=== PATIENT | male | born 1995 | race African-American/Black ===

== ENCOUNTER 2025-04-05 07:16 | Emergency (ER) | payer OTHER, SELFPAY ==
[2025-04-05 07:19] VITALS: BP 133/86
[2025-04-05 07:40] VITALS: BMI 36.6
--- NOTE | 2025-04-05 07:43 | ED.GENMED ---
History of Present Illness
General
Chief Complaint: Cold/Flu/URI Symptoms
Source: patient
Exam Limitations: none
Time Seen by Provider: 04/05/25 07:22
Nursing documentation reviewed up to this point in time: agreed with
History of Present Illness
History of Present Illness:
see mdm
Phy Exam
Physical Exam
Physical Exam:
GENERAL: Alert , in no apparent distress
EYE: pupils equal and reactive
NECK: Supple
ENT: b/l TM s clear, pharynx erythematous but no tonsillar hypertrophy or exudates, moderate turbinate edema and erythema, no sinus tenderness
CARDIAC: Regular rate and rhythm, no edema
LUNGS: Clear breath sounds bilaterally, no acute respiratory distress, no wheezes/rales/rhonchi, occ cough
ABDOMEN: Soft, without focal tenderness, no r/g, no cvat, normal bowel sounds
NEUROLOGICAL: Alert and oriented, no focal neuro deficits
SKIN: Warm and dry, skin intact.
MUSCULOSKELETAL: No edema, well perfused.
PSYCH: Normal and appropriate interaction.
Course
Orders/Labs/Results
Orders:
Orders
04/05/25 07:44
COVID-19 Antigen Urgent
Source: Nasal Swab
Influenza A+B Rapid Molecular Urgent
RUCHI Source: Nasal Swab
Specimen Description:
Rapid Strep Group A Urgent
RUCHI Source: Throat/Pharynx
Specimen Description:
Date Specimen was Collected: 04/05/25
Time Specimen was Collected: 07:41
Abnormal Lab Results
04/05/25
07:44
SARS-CoV-2 Antigen Positive A
(Negative)
Vital Signs
Initial and Last Documented VS:
Initial Vital Signs
Temp Pulse Resp BP Pulse Ox
37.6 C 78 16 133/86 96
04/05/25 07:19 04/05/25 07:19 04/05/25 07:19 04/05/25 07:19 04/05/25 07:19
Last Documented Vital Signs
Temp Pulse Resp BP Pulse Ox
37.6 C 70 16 133/86 98
04/05/25 07:19 04/05/25 08:16 04/05/25 08:16 04/05/25 07:19 04/05/25 08:16
MDM/Problems Addressed
Differential Diagnosis Includes:
See MDM
MDM/Problems Addressed:
Note:
CHIEF COMPLAINT(S)
Sore throat, nasal congestion, and headache.
HISTORY OF PRESENT ILLNESS
The patient is a 29-year-old male no sig PMH who presented with symptoms initially starting 3 days ago, characterized by nasal congestion, sore throat, and a sensation of pressure in the head, which is less painful. The primary concern now is his
throat. The patient experienced a fever the day before yesterday, reaching 99.7�F, and treated it with otyv-hjt-uttniyy medications, including Tylenol. He notes a dry cough, sometimes producing yellow mucus. There is no report of diarrhea, nausea,
vomiting, chest pain, or shortness of breath. The patient denies recent tick bites or any noticeable rash. He has not used any home flu or COVID testing kits. pt's friend had similar sxs and he was around him a few days before pt's symptoms started.
PAST MEDICAL AND SURIGICAL HISTORY
Not on any current medications and has no known past medical conditions or surgical history.
SOCIAL DETERMINANTS AFFECTING HEALTH
The patient works at an unspecified job and occasionally smokes hookah socially, which suggests a potential need to discuss further smoking habits and their impact on respiratory symptoms or overall health.
ALLERGIES
The patient reported allergies to ibuprofen but did not report any reactions.
SOCIAL HISTORY
The patient does not smoke cigarettes or use drugs or alcohol.
REVIEW OF SYSTEMS
- Respiratory: Cough; sometimes productive with yellow mucus.
- Head, Eyes, Ears, Nose, Throat: Nasal congestion, sore throat, and sensation of pressure in the head.
PHYSICAL EXAM
- Ear, Nose, and Throat: Redness noted in the throat upon examination.
PROBLEM LIST
Acute:
- Sore throat
- Nasal congestion
- Headache
- Fever (resolved)
PLAN
Swab for influenza and COVID testing discussed. Evaluation for strep throat through throat examination indicated inflammation. Patient education on symptom management with ycyw-nsl-hkuekrt medications continued as needed.
DIFFERENTIAL DIAGNOSIS
The Differential Diagnosis includes, in no particular order and is not limited to:
1. Viral upper respiratory infection
2. Streptococcal pharyngitis (strep throat)
3. Allergic rhinitis
4. Influenza
5. COVID-19
6. Sinusitis
7. Mononucleosis
8. Non-specific viral syndrome
9. Bacterial pharyngitis
10. Smoking-related irritation
04/05/2025 0830
29-year-old male no medical problems presents with 3 days of URI symptoms, low-grade temps, Tmax 100, treating with Tylenol and mmne-lke-uoayfrt cold and flu medication. Primarily complaining of sore throat now. He occasionally has a dry cough.
The headache has subsided. On exam the patient had moderate pharyngeal erythema without exudate, some nontender lymphadenopathy on anterior cervical chain bilaterally, swollen turbinates, clear lungs. Is well-appearing, no neck stiffness.
Afebrile and stable vital signs. He tested positive for COVID-19. This is viral, encouraged to take Tylenol and Motrin and other supportive mechanisms to help him through this. Discharge home, work note
*Pulse Oximetry
SaO2: 96
Oxygen Mode of Delivery: Room air
Patient hypoxic: no (98)
*Critical Care Note
Total Time (30-74mins, 75-104mins- exclusive of procedures): Not Applicable
ED Attending Note
-
Portions of this chart may have been created with voice recognition software.� Occasional wrong word or��sound alike� substitutions may have occurred due to the inherent limitations of voice recognition software.
Discharge Plan
Departure
Patient Disposition: Home (Routine Discharge)
Date of Disposition: 04/05/25
Time of Disposition: 08:33
Patient with high blood pressure during this ER visit?: Yes
Condition: Fair
Discharge Problem:
Upper respiratory infection, COVID-19
Instructions: Viral Upper Respiratory Infection, Adult (DC), COVID-19 in adults - ED (DC), BLOOD PRESSURE
Stand Alone Forms: Return to Work
Activity Restrictions/Additional Instructions:
You tested positive for COVID-19. Please stay home for another 2 days to avoid exposures to other people. Take Tylenol every 4-6 hours for fever and headache, ibuprofen every 6-8 hours with food. Drink plenty of fluids. Rest. Return for any
concerns like chest pain or shortness of breath. Otherwise symptoms should be resolved, it is a virus and does not require antibiotics
Interventions
Interventions:
*Risk Screen - Suicide Last Done: 04/05/25 07:19
*General Assessment Last Done: 04/05/25 07:47
*Neglect/Abuse Screening Last Done: 04/05/25 07:19
*ED- Fall Risk Assessment Last Done: 04/05/25 07:40
*ED COVID-19 Vaccine History Last Done: 04/05/25 07:40
*Nursing Disposition Last Done: 04/05/25 08:42
ED- Pulmonary Assessment Last Done: 04/05/25 07:47
Discharge Date and Time
Print Language: STATELESS
[2025-04-05 08:26] LABS: COVID-19 Antigen Positive (Negative)
== END 2025-04-05 08:48 | disposition home or self-care (01) ==
LOC: EMR 07:16
PROVIDERS: Physician Assistant; EMERGENCY PHYSICIAN Emergency Medicine
DX: U07.1 COVID-19 (principal); J06.9 Acute upper respiratory infection, unspecified; Z72.0 Tobacco use
CPT/HCPCS: 99283; 87070; 87502; 87811; 87880